=== PATIENT | female | born 1995 | race Caucasian/White ===

== ENCOUNTER 2018-06-12 16:12 | Emergency (ER) | payer OTHER ==
[~2018-06-12] VITALS: Ht 185.4 cm; Wt 99.0 kg
[2018-06-12 16:23] VITALS: Ht 185.4 cm; Wt 99.0 kg
[2018-06-12] MEDS ORDERED: DiphenhydrAMINE HCL 50 MG/ML VIAL IV STA (16:37)
[2018-06-12] MEDS ORDERED: SODIUM CHLORIDE 0.9% 1000ML 1,000 ML IV STA (16:37)
[2018-06-12] MEDS ORDERED: PROCHLORPERAZINE 5 MG/ML 2 ML VIAL IV STA (16:37)
[2018-06-12 17:00] LABS: BASO % 0.2 %; BASO ABS # 0.02 K/uL (0-0.2); EOS % 0.1 %; EOS ABS # 0.01 K/uL (0-0.5); HEMATOCRIT 41.2 % (42-52); IG# 0.03 K/uL (0.00-0.02); LYMPH % 14.7 %; LYMPH ABS # 1.52 K/uL (1.2-3.4); MEAN CELL VOLUME 87.1 fL (80-100); MEAN CORPUSCULAR HEMOGLOBIN 29.6 pg (25-34); MEAN PLATELET VOLUME 10.9 fL (7.4-10.4); MONO % 6.1 %; MONO ABS # 0.63 K/uL (0.11-0.59); NEUT % 78.6 %; NEUT ABS # 8.11 K/uL (1.4-6.5); PLATELET COUNT 266 K/uL (130-400); RED CELL DISTRIBUTION WIDTH CV 12.4 % (11.5-14.5); RED CELL DISTRIBUTION WIDTH SD 39.8 fL (36.4-46.3); WHITE BLOOD COUNT 10.32 K/uL (4.8-10.8)
[2018-06-12 17:26] LABS: CALCIUM 8.8 mg/dl (8.5-10.1); CREATININE 0.84 mg/dl (0.60-1.40); POTASSIUM 3.7 mmol/L (3.5-5.1)
[2018-06-12 17:58] VITALS: BP 144/102; PULSE 86; TEMP 36.7; O2SAT 100
--- NOTE | 2018-06-12 22:15 | EMERGENCY ROOM VISIT NOTE ---
History Report prepared by Scribe: Evette Fernández Under the Supervision of: Dr. Andriy Davison M.D. First contact with patient: 16:28 Chief Complaint: ILLNESS Stated Complaint: MIGRAINE, NAUSEA, VOMITING History of Present Illness The patient is a 23 year old male who presents to the Emergency Room with complaints of a persistent headache for the past 6 days. He states the pain "comes and goes" but is mainly located behind his eyes. He rates his pain as a 6 /10 in severity. He is sensitive to smells and minimally sensitive to light. He has been nauseous and has vomited multiple times, with his last episode of emesis occurring yesterday. He has experienced blurry vision. He admits to a family history of migraine headaches in his Mother. Yesterday, his pain briefly subsided, so he tried to go to work, but states his pain worsened. He denies any recent falls or head trauma. The patient is on hormone therapy to transition from male to female. He believes his only chronic medical issue is high cholesterol. Source of History: patient Onset: 6 days [employer]MENT[employer] Position: head Symptom Intensity: 6/10 Timing: other (persistent) Modifying Factors (Worsening): other (smell, exposure to light) Associated Symptoms: + nausea, + vomiting, No fevers Review of Systems See HPI for pertinent positives & negatives. A total of 10 systems reviewed and were otherwise negative. Past Medical & Surgical Medical Problems: (1) Hyperlipidemia Family History Migraine headaches Social History Smoking Status: Former Smoker Alcohol Use: occasionally Drug Use: none Marital Status: single Housing Status: lives with roommate Occupation Status: employed, [employer] student Physical Exam Vital Signs Date Time Temp Pulse Resp B/P (MAP) Pulse Ox O2 Delivery O2 Flow Rate FiO2 06/12/18 17:58 36.7 86 20 144/102 100 06/12/18 16:23 36.7 86 20 144/102 100 Room Air Physical Exam Constitutional: Vital signs reviewed. Eyes: Pupils are equal round reactive to light. Conjunctiva are noninjected. ENT: Pharynx is clear without erythema or exudate. Mucous membranes are moist. Neck supple without meningeal signs. Respiratory: Clear to auscultation bilaterally. Breath sounds are equal bilaterally. Cardiovascular: Regular rate and rhythm. No rubs or gallops. GI: Soft, nondistended and nontender. Bowel sounds are present. Musculoskeletal: No peripheral edema. No lower extremity tenderness. Integumentary: No cyanosis. Neurological: The patient is awake and alert. Cranial nerves II-XII are intact. Motor is 5 out of 5 all extremities. Sensation is intact to light touch all extremities. Normal speech. No pronator drift. Psychiatric: Normal affect. Medical Decision & Procedures Laboratory Results 06/12/18 16:51 Red Blood Count 4.73, Mean Corpuscular Volume 87.1, Mean Corpuscular Hemoglobin 29.6, Mean Corpuscular Hemoglobin Concent 34.0, Mean Platelet Volume 10.9, Neutrophils (%) (Auto) 78.6, Lymphocytes (%) (Auto) 14.7, Monocytes (%) (Auto) 6.1, Eosinophils (%) (Auto) 0.1, Basophils (%) (Auto) 0.2, Neutrophils # (Auto) 8.11, Lymphocytes # (Auto) 1.52, Monocytes # (Auto) 0.63, Eosinophils # (Auto) 0.01, Basophils # (Auto) 0.02 06/12/18 16:51 Test 06/12/18 16:51 White Blood Count 10.32 K/uL (4.8-10.8) Red Blood Count 4.73 M/uL (4.7-6.1) Hemoglobin 14.0 g/dL (14.0-18.0) Hematocrit 41.2 % (42-52) Mean Corpuscular Volume 87.1 fL (80-100) Mean Corpuscular Hemoglobin 29.6 pg (25-34) Mean Corpuscular Hemoglobin Concent 34.0 g/dl (32-36) Platelet Count 266 K/uL (130-400) Mean Platelet Volume 10.9 fL (7.4-10.4) Neutrophils (%) (Auto) 78.6 % Lymphocytes (%) (Auto) 14.7 % Monocytes (%) (Auto) 6.1 % Eosinophils (%) (Auto) 0.1 % Basophils (%) (Auto) 0.2 % Neutrophils # (Auto) 8.11 K/uL (1.4-6.5) Lymphocytes # (Auto) 1.52 K/uL (1.2-3.4) Monocytes # (Auto) 0.63 K/uL (0.11-0.59) Eosinophils # (Auto) 0.01 K/uL (0-0.5) Basophils # (Auto) 0.02 K/uL (0-0.2) RDW Standard Deviation 39.8 fL (36.4-46.3) RDW Coefficient of Variation 12.4 % (11.5-14.5) Immature Granulocyte % (Auto) 0.3 % Immature Granulocyte # (Auto) 0.03 K/uL (0.00-0.02) Anion Gap 4.0 mmol/L (3-11) Est Creatinine Clear Calc Drug Dose 169.3 ml/min Estimated GFR () 143.0 Estimated GFR (Non- 123.4 BUN/Creatinine Ratio 6.7 (10-20) Calcium Level 8.8 mg/dl (8.5-10.1) Laboratory results as reviewed by me. Medications Administered Medications (Trade) Dose Ordered Sig/Kendrick Route Start Time Stop Time Status Last Admin Dose Admin Sodium Chloride 1,000 ml @ 999 mls/hr Q1H1M STAT IV 06/12/18 16:37 06/12/18 17:37 DC 06/12/18 16:49 999 MLS/HR Prochlorperazine Edisylate (Compazine Inj) 10 mg NOW STAT IV 06/12/18 16:37 06/12/18 16:38 DC 06/12/18 16:49 10 MG Diphenhydramine HCl (Benadryl Inj) 50 mg NOW STAT IV 06/12/18 16:37 06/12/18 16:38 DC 06/12/18 16:49 50 MG ED Course 1629: The patient was evaluated in room C2. A complete history and physical exam was performed. 1637: Benadryl 50 mg IV, Compazine 10 mg IV, NSS 1000 ml @ 999 mls/hr IV. 1735: I reevaluated the patient. He is feeling much better. I discussed his results and discharge instructions and he verbalized complete understanding and agreement. Medical Decision This is a 23-year-old male presents with a headache. Differential diagnosis includes migraine headache, tension headache, intracranial mass, intracranial hemorrhage. I did perform a limited focused review of portions of the patient' s old chart on the electronic medical record. The patient has had no prior visits to this hospital. I did evaluate the patient as noted above. Patient is presenting with a several day history of headaches. He is neurologically intact. He has no fever. I have no current suspicion for an acute hemorrhage or intracranial mass. He does have a family history of migraines. I did order and review the patient's blood work as noted in the electronic medical record. Lab work is unremarkable. I did treat him with IV Benadryl, Compazine and normal saline. On reassessment the patient states he is feeling much better. I did recommend follow-up with his doctor. He was discharged in good condition. Medication Reconcilliation Current Medication List: was personally reviewed by me Blood Pressure Screening Patient's blood pressure: Elevated blood pressure Blood pressure disposition: Referred to PCP Impression Primary Impression: Acute headache Scribe Attestation The scribe's documentation has been prepared under my direct and personally reviewed by me in its entirety. I confirm that the note above accurately reflects all work, treatment, procedures, and medical decision making performed by me. Departure Information Dispostion Home / Self-Care Referrals Cristobal Bailey III, CRNP (PCP) Patient Instructions Headache Pain, My [facility] Additional Instructions You have been examined and treated today on an emergency basis only. This is not a substitute for, or an effort to provide, complete comprehensive medical care. It is impossible to recognize and treat all injuries or illnesses in a single emergency department visit. It is therefore important that you follow up closely with your physician. Call as soon as possible for an appointment. Return for worsening symptoms or if you develop fever, numbness or weakness on one side of your body, difficulties with your speech or walking, or any other concerning symptoms. Problem Qualifiers Primary Impression: Acute headache Headache type: unspecified Intractability: not intractable Qualified Codes : R51 - Headache
== END 2018-06-12 17:59 | disposition home or self-care (01) ==
LOC: EDSEX → C.EDB 16:14 → C.EDC 17:59
DX: R51 Headache (principal); R03.0 Elevated blood-pressure reading, without diagnosis of hypertension; R11.2 Nausea with vomiting, unspecified; H53.8 Other visual disturbances; Z82.0 Family history of epilepsy and other diseases of the nervous system; Z87.891 Personal history of nicotine dependence; Z79.890 Hormone replacement therapy